=== PATIENT | male | born 1990 | race African-American/Black ===

== ENCOUNTER 2017-02-12 01:48 | Emergency (ER) | payer MEDICARE, MEDICAID ==
[2017-02-12] MEDS ORDERED: Ketorolac Tromethamine 60 MG/2 ML VIAL ONE (02:05)
== END 2017-02-12 02:28 | disposition home or self-care (01) ==
LOC: SCSER 01:48
DX: R51 Headache (principal); F41.9 Anxiety disorder, unspecified; I10 Essential (primary) hypertension; J45.909 Unspecified asthma, uncomplicated; Z87.891 Personal history of nicotine dependence
CPT/HCPCS: 96372; J1885

== ENCOUNTER 2017-03-31 08:42 | Emergency (ER) | payer MEDICARE, MEDICAID ==
[2017-03-31] MEDS ORDERED: Ondansetron ODT 4 MG TAB ONE (08:54)
== END 2017-03-31 10:24 | disposition home or self-care (01) ==
LOC: SCSER 08:42
DX: R11.2 Nausea with vomiting, unspecified (principal); R10.9 Unspecified abdominal pain; J45.909 Unspecified asthma, uncomplicated; I10 Essential (primary) hypertension; F41.9 Anxiety disorder, unspecified; Z87.891 Personal history of nicotine dependence; Z79.899 Other long term (current) drug therapy
CPT/HCPCS: 99283; Q0162

== ENCOUNTER 2017-12-27 01:19 | Emergency (ER) | payer MEDICARE, MEDICAID ==
[2017-12-27] MEDS ORDERED: Metoprolol Tartrate 25 MG TAB ONE (01:49)
[2017-12-27] MEDS ORDERED: hydrOXYzine 25 MG TAB ONE (01:49)
[2017-12-27] MEDS ORDERED: Diazepam 5 MG TAB ONE (02:38)
== END 2017-12-27 03:35 | disposition home or self-care (01) ==
LOC: ERS 01:19
DX: F41.0 Panic disorder [episodic paroxysmal anxiety] (principal); J45.909 Unspecified asthma, uncomplicated; I10 Essential (primary) hypertension; Z87.891 Personal history of nicotine dependence; Z79.899 Other long term (current) drug therapy
CPT/HCPCS: 99283